=== PATIENT | male | born 1945 | race Two or more races ===

== ENCOUNTER → 2017-04-17 | Emergency (ER) | payer OTHER ==
[~2017-04-17] VITALS: Ht 172.7 cm; Wt 96.6 kg
[~2017-04-17] MED LIST: ASPIR 8181 MG; GLIPIZIDE5 MG; IRBESARTAN75 MG; LIPITOR40 MG; POLY119PG PO; TAMS0.4C; ZANTAC300 MG PO; ZOFRAN8 MG PO; [UNRECOGNIZED DRUG - OTHER]
== END | disposition home or self-care (01) ==
LOC: ER 10:12
DX: M25.562 Pain in left knee (principal)

== ENCOUNTER → 2017-09-06 | Outpatient (CLI) | payer OTHER | END | disposition home or self-care (01) | LOC: NUCLEAR 08:00 | DX: C18.9 Malignant neoplasm of colon, unspecified (principal) | CPT/HCPCS: 78815; A9552 ==

== ENCOUNTER 2019-05-26 10:26 | Outpatient (CLI) | payer OTHER | END 2019-05-26 10:30 | disposition home or self-care (01) | LOC: SONOGRAMA 10:26 | DX: N40.1 Benign prostatic hyperplasia with lower urinary tract symptoms (principal) ==

== ENCOUNTER 2019-06-22 06:00 | Day surgery (SDC) | payer OTHER | END 2019-06-22 14:15 | disposition home or self-care (01) | LOC: AMB-ENDOS 06:00 | DX: D12.3 Benign neoplasm of transverse colon (principal); K57.30 Diverticulosis of large intestine without perforation or abscess without bleeding; K64.1 Second degree hemorrhoids ==

== ENCOUNTER 2020-06-16 10:54 | Outpatient (CLI) | payer OTHER | END 2020-06-16 15:37 | disposition home or self-care (01) | LOC: RAD 10:54 → MAMO-SONO 06-26 13:15 | PROVIDERS: ATTEND Urology | DX: R31.29 Other microscopic hematuria (principal) ==

== ENCOUNTER 2020-06-26 11:24 | Outpatient (CLI) | payer OTHER | END 2020-06-26 11:32 | disposition home or self-care (01) | LOC: RAD 11:24 | PROVIDERS: ATTEND Urology | DX: N28.1 Cyst of kidney, acquired (principal); R31.21 Asymptomatic microscopic hematuria ==

== ENCOUNTER 2021-03-20 07:29 | Day surgery (SDC) | payer OTHER | END 2021-03-20 12:10 | disposition home or self-care (01) | LOC: AMB-ENDOS 07:29 | PROVIDERS: ATTEND Colon & Rectal Surgery | DX: D12.4 Benign neoplasm of descending colon (principal); K64.1 Second degree hemorrhoids ==